=== PATIENT | male | born 1975 | race Asian ===

== ENCOUNTER 2024-05-19 08:49 | Outpatient (CLI) | payer OTHER ==
--- NOTE | 2024-05-19 09:28 | Sleep Patient Instructions ---
Sleep Center Visit Summary - Patient Visit Information Reason for Visit: Initial consult for evaluation of sleep disordered breathing and other sleep issues. - Patient Instructions Instructions Attached: Sleep Study, Sleep Study Home Monitor Additional Instructions: You will be completing a sleep study, either an in-lab polysomnography (PSG) or home sleep study (HST). You will follow-up in the sleep care office after the sleep study is completed to hear the results and talk about therapy, if needed. You will be called by our office staff to schedule this appointment, but you may contact us with any questions. - Clinic Information Contact: [facility] [address] [place] [id number] [email or web address] T: [phone]
--- NOTE | 2024-05-19 09:32 | SLEEP CARE CONSULTATION ---
Information from patient questionnaire entered by Clair Sweet. I have reviewed and concur with the information entered by Clair Sweet. This document represents the service I personally performed and the decisions made by me, Rebeca Matthew ARNP. 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 denies: Choking, Gasping for air Toss, Turn, or Twitch while sleeping: Yes Recalls having dreams: Yes Usually gets out of bed at: 5789-4548 Feels refreshed in the morning: No (sometimes does) Morning headache: Yes (3 times a week; resolves after taking Tylenol/Ibuprofen) Sleepy or fatigued during the day: Yes Ever fallen asleep while driving: No Takes day naps: Yes (10-15 mins, almost daily) Dreams during day naps: Yes Prior sleep studies: No Additional HPI information: I had the pleasure of seeing LULKelli CROWELLOG today regarding the possibility of him having a sleep disorder. His current complaints are fatigue, observed pauses in breathing, snoring and unrefreshed sleep. He says his has noticed that his snoring has gotten worse and he is gasping for air with possible pauses in breathing. He just falls back to sleep and does not notice it mostly, sometimes he will cough. He says he normally does not feel rested in the morning. He works the [employer] shift for work. He can take 30-60 minutes to fall asleep and may wake up 2-3 times through the night. 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 Patient is and lives in . Have you smoked in the past 12 months: No (Vapes daily) Cigarettes per day (20/pack): 20 Years of smokin Quit date: 2012 Smoking Pack Years: 20.0 Alcohol use: Yes Alcohol amount and frequency: .5-1CUP SOCIAL Caffeine use: Yes Caffeine amount and frequency: 2CUPS DAILY Family History Family history of sleep disordered breathing: Yes Family Hx Sleep Apnea: Mother: Snoring, Sibling: Snoring Allergies and Home Medications Known drug allergies: No Drug allergies reviewed: Yes Home medication list reviewed: Yes (as listed) Allergy and home medication list: Allergies No Known Drug Allergies Allergy (Verified 05/17/24 09:57) Home Medications Medication Instructions Recorded Confirmed Last Taken Type Losartan [Cozaar] See Rx Instructions .ROUTE .COMPLEX 05/17/24 05/17/24 Unknown History Review of Systems Weight gain over past 5 years: 5 Cardiovascular: reports: high blood pressure Gastrointestinal: denies: heartburn Neurological: reports: headaches Psychiatric: denies: anxiety, depression Ear/Nose/Throat: reports: dry mouth/throat, other (TINITUS). denies: tonsillectomy Musculoskeletal: reports: joint pain, neck pain Immunologic: reports: sneezing Physical Exam Vital signs obtained and entered by: CLAIR Mooney MA Blood Pressure: 184/118 (RIGHT ARM; meds taken last afternoon) Cuff size: regular Heart Rate: 79 O2 Saturation: 99 Height: 5 ft 5.25 in Weight: 178 lb 3.2 oz Body Mass Index: 29.4 BMI Classification: Overweight Neck circumference: 14 Mouth and throat: narrow oropharynx Soft palate: long Hard palate: normal Uvula: normal Uvula visualization: 50% Mallampati Class II Tongue: enlarged in size with teeth gordon on lateral edges Tonsils: 1+ Neck: normal w/o lymphadenopathy or thyromegaly Heart: regular rate and rhythm Lungs: clear bilaterally Impression and Plan 1. Suspected Obstructive Sleep Apnea-Hypopnea Syndrome, as suggested by a hist ory of loud and irregular snoring, observed cessation of breath while asleep, gasping or choking in sleep, morning headache, unrefreshed sleep, and excessive daytime sleepiness. Narrow oropharynx and obesity are common predisposing factors for obstructive sleep apnea-hypopnea syndrome. I recommend proceeding to polysomnography to confirm the diagnosis and to assess severity. If the patient has significant sleep disordered breathing, a manual CPAP titration study will also be performed to find the optimal treatment pressure. I informed the patient of what the sleep studies involve and after some discussion, obtained agreement to proceed. The pathophysiology of obstructive sleep apnea-hypopnea syndrome was discussed with the patient and health risks of cardiovascular and cerebrovascular disease if not treated. 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 Patient agreed to plan. 2. Elevated blood pressure in patient with hypertension. His initial blood pressure reading was 184/118. 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 He has no complaints of chest pain, shortness of breath, dizziness or headaches today. * Schedule polysomnography * Avoid long distance driving or driving when feeling sleepy. * Avoid alcohol, sedative and muscle relaxant around bedtime. * Attempt to lose weight. * Review instructions provided by trained office staff on how to prepare for the sleep study. * Return for follow-up after sleep study completed. Counseling Topics: Weight loss health impact Plan: PSG/HST and follow up Visit Type: In Office Time Spent with Patient (minutes): 24 Provider Statement: I spent 100% of the Face to Face Visit with the patient with greater than 50% spent counseling the patient and coordination of care.
[2024-05-19 09:41] VITALS: BP 184/118; O2SAT 99
== END 2024-05-19 08:50 | disposition home or self-care (01) ==
LOC: SC 08:49
PROVIDERS: ATTEND Nurse Practitioner Family
DX: R06.83 Snoring (principal); R53.83 Other fatigue; R06.81 Apnea, not elsewhere classified; R51.9 Headache, unspecified; G47.8 Other sleep disorders; Z87.891 Personal history of nicotine dependence; I10 Essential (primary) hypertension; E66.3 Overweight; Z68.29 Body mass index [BMI] 29.0-29.9, adult
CPT/HCPCS: 99202; 99212

== ENCOUNTER 2024-06-30 19:30 | Outpatient (CLI) | payer OTHER | END 2024-06-30 19:31 | disposition home or self-care (01) | LOC: SC 19:30 | PROVIDERS: ATTEND Nurse Practitioner Family | DX: G47.33 Obstructive sleep apnea (adult) (pediatric) (principal); E66.3 Overweight; Z68.29 Body mass index [BMI] 29.0-29.9, adult | CPT/HCPCS: 95810 ==

== ENCOUNTER 2024-07-25 09:37 | Outpatient (CLI) | payer OTHER ==
--- NOTE | 2024-07-25 10:40 | Sleep Patient Instructions ---
Sleep Center Visit Summary - Patient Visit Information Reason for Visit: Sleep study follow-up - Patient Instructions Additional Instructions: You are being started on CPAP therapy. You will be completing a titration sleep study in our sleep lab where you will be sleeping with the CPAP machine on and we will be adjusting your pressures to find your optimal pressure settings. Once we have your results back, we will call you and schedule a follow up to go over the results, you may contact us with any questions or issues as needed. - Clinic Information Contact: [facility] [address] [place] [id number] [email or web address] T: [phone]
--- NOTE | 2024-07-25 10:44 | SLEEP CARE CONSULTATION ---
Information from patient questionnaire entered by Mary Barlow. I have reviewed and concur with the information entered by Mary Barlow. This document represents the service I personally performed and the decisions made by , Rebeca Matthew ARNP. History of Present Illness Service Date and Time: 07/25/2024 0937 Initial Warren Sleepiness Scale score: 12 (04/18/24) Current Warren Sleepiness Scale score: 12 (07/25/24) Additional HPI information: LUL MERCADO returns for follow up and results of the recently performed polysomnography. The sleep study done on 06/30/24 showed moderate obstructive sleep apnea with an average AHI of 21.7 and mauro oxygen saturation of 73%. He had moderate PLMs contributing to sleep fragmentation I explained the pathophysiology behind obstructive sleep apnea. We then spent quite a bit of time discussing different treatment options. For mild obstructive sleep apnea, surgery and oral appliance are alternatives to nasal CPAP therapy but in moderate or severe cases, nasal CPAP is the most effective and reliable treatment. I reviewed the impact of weight changes on sleep apnea and strongly recommended losing weight. After some discussion, the patient opted to go with the nasal CPAP therapy. A manual titration study will be ordered to find optimal pressure. I explained how CPAP machine works and what to expect when using the machine. Using CPAP every night in order to get used to it was emphasized. Patient counseled not drink alcohol less than 4 hours before bedtime as it can increase snoring and apnea. Patient was cautioned about risks of drowsy driving until sleepiness symptoms resolve. Patient denies drowsy driving. Sleep Study - Results Type of Sleep Study: Polysomnography Prior sleep studies: No Year and Where: 2023 [facility] Polysomnography/Home Sleep Study results: IMPRESSION: The quality of the study is good. The patient had reduced sleep efficiency due to several awakenings during the night. The sleep architecture was abnormal for sleep fragmentation and reduced amount of time spent in REM and slow wave sleep (N3). Respiratory monitoring showed moderate obstructive sleep apnea-hypopnea (AHI = 21.7) associated with frequent arousals, oxyhemoglobin desaturation and moderate hypoxia (muaro oxygen saturation of 73%). The respiratory events occurred predominantly during supine sleep (supine AHI = 37.0; nonsupine = 8.26). Snore was moderate to loud in intensity. There was moderate periodic leg movement of sleep, contributing to the sleep fragmentation. Cardiac rhythm was normal sinus rhythm without significant arrhythmia. No abnormal behavior (parasomnia) observed during the night. Allergies and Home Medications Known drug allergies: No Drug allergies reviewed: Yes Home medication list reviewed: Yes (no changes) Allergy and home medication list: Allergies No Known Drug Allergies Allergy (Verified 05/19/24 09:05) Review of Systems Review of systems same as previous: Yes (no changes) Physical Exam Vital signs obtained and entered by: Rebeca Rey NP Blood Pressure: 155/105 (has not yet taken bp meds) Cuff size: wrist (right) Heart Rate: 84 O2 Saturation: 99 Height: 5 ft 5.25 in Weight: 179 lb 6.4 oz Body Mass Index: 29.6 BMI Classification: Overweight Impression and Plan 1. Obstructive Sleep Apnea-Hypopnea Syndrome, moderate, with lowest oxygen saturation of 73%. Obviously this is the cause of the patients symptoms of unrefreshed sleep, and excessive daytime sleepiness. Positive pressure therapy could benefit hypertension. As mentioned above, the patient will be started on nasal autoCPAP therapy. A manual titration study will be completed to find optimal treatment pressure. Compliance guidelines also reviewed. Because the apnea is more severe supine, I instructed to avoid sleeping supine using pillow positioning until able to start CPAP use. 2. Hypoxemia, moderate, with a mauro oxygen saturation of 73% and 7.7 minutes spent under 90%. The baseline oxygen saturation was normal with an average oxygen saturation of 94%. 3. Periodic limb movement, moderate, that did contribute to fragmentation of patients sleep. Periodic limb movement of sleep (PLMS) is characterized by episodes of repetitive limb movements that occur during sleep and usually involve the lower limbs. The etiology is unknown. Sleep hygiene methods can also improve sleep as well as lifestyle changes such as regular exercise. Patient was advised that no treatment is needed at this time. If symptoms increase, then further evaluation is indicated. 4. Overweight, unspecified. Currently patients BMI is 29.6. Obesity increases the risk of apnea, CPAP pressure requirements and overall health risks especially cardiovascular and diabetes. Thus patient is advised to lose weight. * Titration study * Attempt to lose weight. * Avoid alcohol consumption near bedtime. * Avoid supine sleep until using CPAP. * The patient is again cautioned about driving until sleepiness completely resolves. * Return for titration study and then follow up to initiate therapy Counseling Topics: Sleeping position, Weight loss health impact Follow up with Sleep Care in: other (after titration study) Visit Type: In Office Time Spent with Patient (minutes): 21 Provider Statement: I spent 100% of the Face to Face Visit with the patient with greater than 50% spent counseling the patient and coordination of care.
[2024-07-25 10:52] VITALS: BP 155/105; O2SAT 99
== END 2024-07-25 09:38 | disposition home or self-care (01) ==
LOC: SC 09:37
PROVIDERS: ATTEND Nurse Practitioner Family
DX: G47.33 Obstructive sleep apnea (adult) (pediatric) (principal); R09.02 Hypoxemia; G47.61 Periodic limb movement disorder; E66.3 Overweight; Z68.29 Body mass index [BMI] 29.0-29.9, adult
CPT/HCPCS: 99212; 99213